=== PATIENT | male | born 1960 | race Caucasian/White ===

== ENCOUNTER → 2016-08-26 | Outpatient (CLI) | payer OTHER ==
[2016-08-26 08:40] LABS: MEAN CORPUSCULAR HEMOGLOBIN 30.5 pg (27.0-33.0); MEAN CORPUSCULAR HGB CONC 34.8 g/dl (32.0-36.5); MEAN CORPUSCULAR VOLUME 87.7 fl (80.0-96.0); RED CELL DISTRIBUTION WIDTH 12.3 % (11.5-14.5); WHITE BLOOD COUNT 5.4 K/mm3 (4.0-10.0)
[2016-08-26 09:02] LABS: ALBUMIN 3.5 GM/DL (3.2-5.2); ALBUMIN/GLOBULIN RATIO 1.17 (1.00-1.93); ALKALINE PHOSPHATASE 51 U/L (45-117); ALT/SGPT 23 U/L (12-78); ANION GAP 7 MEQ/L (8-16); AST/SGOT 15 U/L (15-37); BILIRUBIN,TOTAL 0.4 MG/DL (0.2-1.0); BLOOD UREA NITROGEN 25 MG/DL (7-18); CALCIUM LEVEL 8.6 MG/DL (8.5-10.1); CARBON DIOXIDE LEVEL 29 MEQ/L (21-32); CHLORIDE LEVEL 107 MEQ/L (98-107); CHOLESTEROL LEVEL 227 MG/DL (<200); CREATININE FOR GFR 1.02 MG/DL (0.70-1.30); GLOMERULAR FILTRATION RATE > 60.0 (>56); GLUCOSE, FASTING 97 MG/DL (70-105); POTASSIUM SERUM 3.8 MEQ/L (3.5-5.1); SODIUM LEVEL 143 MEQ/L (136-145); TOTAL PROTEIN 6.5 GM/DL (6.4-8.2); TRIGLYCERIDES LEVEL 70 MG/DL (<150)
== END ==
LOC: M LAB 08:19
PROVIDERS: ATTEND Family Medicine
DX: I10 Essential (primary) hypertension (principal)

== ENCOUNTER → 2017-02-22 | Outpatient (CLI) | payer OTHER ==
[2017-02-22 09:19] LABS: BASO % 0.7 % (0.0-1.0); EOS # 0.2 10^3/uL (0.0-0.50); EOS % 3.8 % (0.0-3.0); IMMATURE GRANULOCYTE % 0.3 % (0-0); LYMPH # 1.7 10^3/uL (1.5-4.5); LYMPH % 27.8 % (24.0-44.0); MEAN CORPUSCULAR VOLUME 88.2 fl (80.0-96.0); MONO # 0.6 10^3/uL (0.0-0.8); MONO % 9.5 % (0.0-5.0); NEUTROPHILS # 3.5 10^3/uL (1.8-7.7); NEUTROPHILS % 57.9 % (36.0-66.0); PLATELET COUNT, AUTOMATED 191 10^3/uL (150-450); RED CELL DISTRIBUTION WIDTH 11.9 % (11.5-14.5); WHITE BLOOD COUNT 6.1 10^3/uL (4.0-10.0)
[2017-02-22 09:41] LABS: ALBUMIN 3.8 GM/DL (3.2-5.2); ALBUMIN/GLOBULIN RATIO 1.27 (1.00-1.93); ALKALINE PHOSPHATASE 45 U/L (45-117); ALT/SGPT 24 U/L (12-78); ANION GAP 4 MEQ/L (8-16); AST/SGOT 15 U/L (7-37); BILIRUBIN,TOTAL 0.6 MG/DL (0.2-1.0); BLOOD UREA NITROGEN 24 MG/DL (7-18); CALCIUM LEVEL 8.9 MG/DL (8.5-10.1); CARBON DIOXIDE LEVEL 32 MEQ/L (21-32); CHLORIDE LEVEL 105 MEQ/L (98-107); CHOLESTEROL LEVEL 247 MG/DL (<200); CREATININE FOR GFR 1.02 MG/DL (0.70-1.30); GLOMERULAR FILTRATION RATE > 60.0 (>56); GLUCOSE, FASTING 92 MG/DL (70-105); POTASSIUM SERUM 4.1 MEQ/L (3.5-5.1); SODIUM LEVEL 141 MEQ/L (136-145); TOTAL PROTEIN 6.8 GM/DL (6.4-8.2); TRIGLYCERIDES LEVEL 90 MG/DL (<150)
== END ==
LOC: M LAB 08:40
PROVIDERS: ATTEND Family Medicine
DX: I10 Essential (primary) hypertension (principal)

== ENCOUNTER → 2018-03-03 | Outpatient (CLI) | payer OTHER ==
[2018-03-03 07:05] LABS: BASO # 0.1 10^3/uL (0.0-0.2); EOS # 0.4 10^3/uL (0.0-0.50); HEMATOCRIT 46.6 % (42.0-52.0); HEMOGLOBIN 15.3 g/dl (13.5-17.5); IMMATURE GRANULOCYTE % 0.5 % (0-3.0); LYMPH # 1.7 10^3/uL (1.5-4.5); MEAN CORPUSCULAR HEMOGLOBIN 29.4 pg (27.0-33.0); MEAN CORPUSCULAR HGB CONC 32.8 g/dl (32.0-36.5); MEAN CORPUSCULAR VOLUME 89.4 fl (80.0-96.0); MONO # 0.6 10^3/uL (0.0-0.8); MONO % 9.4 % (0.0-5.0); NEUTROPHILS # 3.5 10^3/uL (1.8-7.7); NEUTROPHILS % 56.1 % (36.0-66.0); PLATELET COUNT, AUTOMATED 202 10^3/uL (150-450); RED BLOOD COUNT 5.21 10^6/uL (4.30-6.10); WHITE BLOOD COUNT 6.2 10^3/uL (4.0-10.0)
[2018-03-03 07:25] LABS: ALBUMIN 3.6 GM/DL (3.2-5.2); ALBUMIN/GLOBULIN RATIO 1.29 (1.00-1.93); ALKALINE PHOSPHATASE 48 U/L (45-117); ALT/SGPT 28 U/L (12-78); ANION GAP 8 MEQ/L (8-16); AST/SGOT 17 U/L (7-37); BILIRUBIN,TOTAL 0.5 MG/DL (0.2-1.0); BLOOD UREA NITROGEN 22 MG/DL (7-18); CARBON DIOXIDE LEVEL 29 MEQ/L (21-32); CHLORIDE LEVEL 105 MEQ/L (98-107); CHOLESTEROL LEVEL 227 MG/DL (<200); CHOLESTEROL RISK RATIO 4.729 (<5); CREATININE FOR GFR 1.05 MG/DL (0.70-1.30); GLOMERULAR FILTRATION RATE > 60.0 (>56); GLUCOSE, FASTING 98 MG/DL (70-100); HDL CHOLESTEROL 48 MG/DL (>40); LDL CHOLESTEROL 158 MG/DL (<100); NON-HDL-C 179 MG/DL; POTASSIUM SERUM 3.8 MEQ/L (3.5-5.1); SODIUM LEVEL 142 MEQ/L (136-145); TOTAL PROTEIN 6.4 GM/DL (6.4-8.2); TRIGLYCERIDES LEVEL 103 MG/DL (<150)
== END ==
LOC: M LAB 06:01
DX: I10 Essential (primary) hypertension (principal)
CPT/HCPCS: 80053

== ENCOUNTER → 2018-08-31 | Outpatient (CLI) | payer OTHER ==
[2018-08-31 08:34] LABS: BASO # 0.1 10^3/uL (0.0-0.2); BASO % 1.3 % (0.0-1.0); EOS # 0.8 10^3/uL (0.0-0.50); EOS % 11.1 % (0.0-3.0); HEMATOCRIT 46.2 % (42.0-52.0); HEMOGLOBIN 15.4 g/dl (13.5-17.5); LYMPH # 1.7 10^3/uL (1.5-4.5); LYMPH % 24.3 % (24.0-44.0); MEAN CORPUSCULAR HEMOGLOBIN 29.7 pg (27.0-33.0); MEAN CORPUSCULAR HGB CONC 33.3 g/dl (32.0-36.5); MONO # 0.7 10^3/uL (0.0-0.8); MONO % 9.9 % (0.0-5.0); NEUTROPHILS # 3.8 10^3/uL (1.8-7.7); NEUTROPHILS % 53.3 % (36.0-66.0); PLATELET COUNT, AUTOMATED 198 10^3/uL (150-450); RED BLOOD COUNT 5.19 10^6/uL (4.30-6.10)
[2018-08-31 08:44] LABS: ALBUMIN 3.8 GM/DL (3.2-5.2); ALT/SGPT 30 U/L (12-78); BILIRUBIN,TOTAL 0.8 MG/DL (0.2-1.0); BLOOD UREA NITROGEN 25 MG/DL (7-18); CARBON DIOXIDE LEVEL 29 MEQ/L (21-32); CHLORIDE LEVEL 106 MEQ/L (98-107); CHOLESTEROL LEVEL 168 MG/DL (<200); CHOLESTEROL RISK RATIO 3.111 (<5); CREATININE FOR GFR 1.02 MG/DL (0.70-1.30); GLOMERULAR FILTRATION RATE > 60.0 (>56); GLUCOSE, FASTING 100 MG/DL (70-100); HDL CHOLESTEROL 54 MG/DL (>40); LDL CHOLESTEROL 101 MG/DL (<100); NON-HDL-C 114 MG/DL; SODIUM LEVEL 143 MEQ/L (136-145); TOTAL PROTEIN 6.8 GM/DL (6.4-8.2); TRIGLYCERIDES LEVEL 64 MG/DL (<150)
== END ==
LOC: M LAB 08:03
PROVIDERS: ATTEND Family Medicine
DX: I10 Essential (primary) hypertension (principal)

== ENCOUNTER → 2019-02-14 | Outpatient (CLI) | payer OTHER ==
[2019-02-16 10:52] LABS: RUBELLA IgG QUALITATIVE IMMUNE (IMMUNE)
[2019-02-16 14:34] LABS: MUMPS VIRUS IgG ANTIBODY 22.4 AU/mL (Immune >10.9); RUBEOLA IgG ANTIBODY >300.0 AU/mL (Immune >16.4)
== END ==
LOC: M LAB 08:16
PROVIDERS: ATTEND Family Medicine
DX: Z01.84 Encounter for antibody response examination (principal)

== ENCOUNTER → 2019-05-12 | Outpatient (CLI) | payer OTHER ==
[~2019-05-12] MED LIST: ATOR40TA75 PO; CIDA500T2 PO; HM V4000 PO; LISI20TA20 PO; MIRA3350 PO; TUMS750C5 PO; XARE10TA PO
[2019-05-12 16:41] LABS: HEMATOCRIT 47.7 % (42.0-52.0); HEMOGLOBIN 15.4 g/dl (13.5-17.5); MEAN CORPUSCULAR HEMOGLOBIN 29.2 pg (27.0-33.0); MEAN CORPUSCULAR HGB CONC 32.3 g/dl (32.0-36.5); MEAN CORPUSCULAR VOLUME 90.3 fl (80.0-96.0); PLATELET COUNT, AUTOMATED 173 10^3/uL (150-450); RED BLOOD COUNT 5.28 10^6/uL (4.30-6.10); WHITE BLOOD COUNT 7.9 10^3/uL (4.0-10.0)
--- NOTE | 2019-05-12 16:42 | ECGEPIP ---
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
[2019-05-12 16:46] LABS: INR 1.1; PROTHROMBIN TIME 13.9 SECONDS (11.8-14.0)
[2019-05-12 17:02] LABS: ALT/SGPT 44 U/L (12-78); BILIRUBIN,TOTAL 0.6 MG/DL (0.2-1.0); BLOOD UREA NITROGEN 27 MG/DL (7-18); CALCIUM LEVEL 9.2 MG/DL (8.5-10.1); CARBON DIOXIDE LEVEL 29 MEQ/L (21-32); CHLORIDE LEVEL 107 MEQ/L (98-107); CREATININE FOR GFR 1.03 MG/DL (0.70-1.30); GLOMERULAR FILTRATION RATE > 60.0 (>56); GLUCOSE, FASTING 91 MG/DL (70-100); POTASSIUM SERUM 4.2 MEQ/L (3.5-5.1); SODIUM LEVEL 142 MEQ/L (136-145); TOTAL PROTEIN 6.9 GM/DL (6.4-8.2)
[2019-05-12 17:48] LABS: ERYTHROCYTE SEDIMENTATION RATE 18 mm/hr (0-20)
== END ==
LOC: M RAD 15:09
PROVIDERS: ATTEND Orthopaedic Surgery
DX: M25.562 Pain in left knee (principal)

== ENCOUNTER → 2019-05-12 | Outpatient (CLI) | payer OTHER ==
[2019-05-12 16:43] LABS: HEMATOCRIT 46.9 % (42.0-52.0); HEMOGLOBIN 15.4 g/dl (13.5-17.5); MEAN CORPUSCULAR HEMOGLOBIN 29.4 pg (27.0-33.0); MEAN CORPUSCULAR HGB CONC 32.8 g/dl (32.0-36.5); MEAN CORPUSCULAR VOLUME 89.7 fl (80.0-96.0); PLATELET COUNT, AUTOMATED 183 10^3/uL (150-450); RED BLOOD COUNT 5.23 10^6/uL (4.30-6.10)
[2019-05-12 17:01] LABS: ALT/SGPT 42 U/L (12-78); BILIRUBIN,TOTAL 0.6 MG/DL (0.2-1.0); BLOOD UREA NITROGEN 27 MG/DL (7-18); CALCIUM LEVEL 9.2 MG/DL (8.5-10.1); CARBON DIOXIDE LEVEL 28 MEQ/L (21-32); CHLORIDE LEVEL 107 MEQ/L (98-107); CREATININE FOR GFR 1.01 MG/DL (0.70-1.30); GLOMERULAR FILTRATION RATE > 60.0 (>56); GLUCOSE, FASTING 89 MG/DL (70-100); POTASSIUM SERUM 4.1 MEQ/L (3.5-5.1); SODIUM LEVEL 142 MEQ/L (136-145); TOTAL PROTEIN 6.8 GM/DL (6.4-8.2)
--- NOTE | 2019-05-13 07:29 | REP ---
Clinical: Preoperative assessment . Comparison: 04/30/2008 Technique: PA and lateral. Findings: The mediastinum and cardiac silhouette are normal. The lung snyder are clear and without acute consolidation, effusion, or pneumothorax. The skeletal structures are intact and normal. Impression: 1. No acute cardiopulmonary process. Electronically Signed by Wilfred Spain MD 05/12/2019 04:12 P
== END ==
LOC: M LAB 15:16
PROVIDERS: ATTEND Family Medicine
DX: Z01.818 Encounter for other preprocedural examination (principal)

== ENCOUNTER 2019-05-25 16:19 | Outpatient (RCR) | payer OTHER ==
[2019-05-28] MEDS ORDERED: XARE10TA PO (06:29)
[2019-05-28] MEDS ORDERED: PERC5TAB12 PO (06:29)
== END 2019-05-30 ==
LOC: M PT 16:19
PROVIDERS: ATTEND Orthopaedic Surgery
DX: M17.12 Unilateral primary osteoarthritis, left knee (principal)

== ENCOUNTER 2019-05-27 09:19 | Inpatient (IN) | payer OTHER ==
--- NOTE | 2019-05-22 15:12 | HPE ---
DATE OF PLANNED ADMISSION: 05/27/2019 HISTORY OF PRESENT ILLNESS This is a pleasant 58-year-old male with continuing symptomatic left knee osteoarthritis. He has consented for a left total knee arthroplasty per Dr. Alberto Kohler. Medical optimization per Dr. Moore. X-rays are consistent with advanced osteoarthritis. ALLERGIES: None known to drugs. CURRENT MEDICATIONS - Lisinopril - hydrochlorothiazide 20-25 mg - Glucosamine chondroitin - Motrin 200 mg. - Tums 500 mg - Xarelto 10 mg - Atorvastatin calcium 40 mg - MiraLAX 3350 NF. PAST MEDICAL HISTORY: Bilateral knee osteoarthritis. Essential hypertension. Chronic deep vein thrombosis femoral nerve left lower extremity which has been managed with Xarelto. Coagulation factor deficiency syndrome. Hypercoagulability state. Peripheral venous insufficiency. Thrombophilia due to acquired protein C deficiency. Varicose veins lower extremity. Hypercholesteremia. CURRENT PROBLEMS: Symptomatic osteoarthritis. Hypertension. Hypercholesteremia. PAST SURGICAL HISTORY Knee and shoulder arthroscopy. FAMILY HISTORY: Hypertension, heart disease, hypercholesteremia and arthritis. SOCIAL HISTORY Denies smoking, rarely intakes ethanol. Denies illicit drugs. REVIEW OF SYSTEMS Denies chest pain, shortness breath, dyspnea on exertion, fever, chills, malaise, upper respiratory, urinary tract symptoms. LABORATORY DATA Chest x-ray [facility] service date 05/12 : No acute cardiopulmonary process per [facility]. EKG: Sinus rhythm left axis deviation. Mild intraventricular conduction delay as read by Dr. Arizmendi. LABORATORY DATA BUN 27, anion gap 6, otherwise unremarkable. PHYSICAL EXAMINATION Vitals: BP 122/70. Pulse 78, temperature 96.9. Height 72. Weight 248 pounds. BMI 33.6. Respiratory 13. This is a pleasant well-developed, well-nourished white male in no acute distress. Alert and oriented times three. Mood and affect are appropriate. He ambulating slow steady without overt antalgia, assistance or favoring. He has left knee medial joint line tenderness to palpation, crepitance about the knee through flexion and extension. Bowels soft, nontender, sounds times four. Chest: Regular rate and rhythm, rises symmetrically. Lungs: Clear to auscultation. Neck: Supple. Negative JVD or bruits. Normocephalic. IMPRESSION 1. Left knee symptomatic osteoarthritis. 2. Patient consented for a left total knee arthroplasty per Dr. Alberto Kohler. 3. Medical optimization per Dr. Moore, which I am awaiting his clearance note. 4. Sequential compression devices (SCDs) and TEDs in OR. 5. 2 grams IV Kefzol in OR. MTDD
[~2019-05-27] VITALS: Ht 180.3 cm; Wt 110.6 kg
[2019-05-27] VITALS (7 sets, daily range): BP systolic 120–136; BP diastolic 77–82
[~2019-05-27 09:19] MED LIST changes: +BUPIVACAINE LIPOSOME/PF 1.3% 20ML VIAL (13.3MG/ML)(EXPAREL)(C9290 PER1MG) As Ordered ONE; +EPINEPHrine INJ 1 MG/ML 1ML VIAL As Ordered ONE; +LR 1,000 ML IV ONE; +TRANEXAMIC ACID 100 MG/ML 10ML VIAL As Ordered ONE; +ceFAZolin 1GM INJ (J0690 PER 500MG) As Ordered ONE; +ceFAZolin SOD 2 GM in IV 1 EA IV ONE
--- NOTE | 2019-05-27 10:46 | IPN ---
DATE: 05/27/2019 Patient seen and examined. He wishes to go ahead with a left knee arthroplasty. He understands the nature and risks associated with this. The risks include bleeding, infection, damage to nerves, vessels, persistent pain, wear loosening, blood clots, medical problems, , among others. He wishes to proceed.
[2019-05-27] MEDS ORDERED: fentaNYL 100 MCG/2 ML INJECTION (J3010) As Ordered ONE ×2 (11:19→12:57)
[2019-05-27] MEDS ORDERED: MIDAZOLAM INJ 2 MG/2 ML VIAL (J2250) As Ordered ONE ×2 (11:19→12:57)
[2019-05-27] MEDS ORDERED: fentaNYL 100 MCG/2 ML INJECTION (J3010) IV PRN ×2 (12:00→14:30)
[2019-05-27] MEDS ORDERED: MIDAZOLAM INJ 2 MG/2 ML VIAL (J2250) IV PRN (12:00)
[2019-05-27] MEDS ORDERED: PHENYLephrine HCL 500 MCG/5 ML (100MCG/ML) SYRINGE (J2370) As Ordered ONE (12:57)
[2019-05-27] MEDS ORDERED: ONDANSETRON 4MG/2ML VIAL (J2405) As Ordered ONE (12:57)
[2019-05-27] MEDS ORDERED: propofoL 500 MG/50 ML VIAL As Ordered ONE (12:57)
[2019-05-27] MEDS ORDERED: LIDOCAINE 2% INJ 100 MG/5 ML SDV (FOR ANES.) As Ordered ONE (12:57)
[2019-05-27] MEDS ORDERED: propofoL 200 MG/20 ML VIAL As Ordered ONE ×2 (12:58→13:42)
[2019-05-27] MEDS ORDERED: ROPIvacaine 0.5% 30 ML INJECTION (J2795 PER 1MG) ONE (13:29)
[2019-05-27] MEDS ORDERED: LIDOCAINE 1% MDV 20ML VIAL ONE (13:29)
[2019-05-27] MEDS ORDERED: EPINEPHrine INJ 1 MG/ML 1ML VIAL ONE (13:29)
[2019-05-27] MEDS ORDERED: METOCLOPRAMIDE INJ 10MG/2ML VIAL (J2765) IV PRN (14:30)
[2019-05-27] MEDS ORDERED: oxyCODONE 5MG TAB PO PRN (14:30)
[2019-05-27] MEDS ORDERED: LR 1,000 ML IV SCH ×2 (14:30)
[2019-05-27] MEDS ORDERED: MORPHINE 4 MG/ML 1ML VIAL/SYRINGE (J2270) IV PRN (14:30)
[2019-05-27] MEDS ORDERED: PERCOCET 5MG/325MG TAB PO PRN ×2 (14:30)
[2019-05-27] MEDS ORDERED: ONDANSETRON 4MG/2ML VIAL (J2405) IV PRN ×2 (14:30)
[2019-05-27] MEDS ORDERED: MORPHINE 2 MG/ML 1ML VIAL (J2270) IV PRN (14:30)
[2019-05-27] MEDS ORDERED: ACETAMINOPHEN TAB 650MG DOSE (2X325MG) PO PRN (15:00)
--- NOTE | 2019-05-27 15:00 | REP ---
Left knee: Two views. History: Postop placement. Findings: Portably obtained AP and lateral views of the left knee demonstrate that the patient is status post left knee arthroplasty. Anterior skin cait are seen. Periarticular soft tissue emphysema and some swelling seen. Prosthetic left knee joint components are well aligned. Electronically Signed by Amador Riojas MD 05/27/2019 02:51 P
--- NOTE | 2019-05-27 16:12 | CR.PDOC ---
General Date of Consultation: May 27, 2019 Referring Provider: JENNY GUERRIER DO Consultation REASON FOR CONSULTATION Medical management postoperatively for left knee replacement. HISTORY OF PRESENT ILLNESS: This is an 58 year old male with past medical history of, htn, non provoked DVT on 10 mg xeralto for the last 3 years, who presented for elective Left Knee Replacement. We have been consulted for medical management of patient. He is feeling good. Patient denies chest pain, shortness of breath, vomiting, fever, chills and headache. PAST MEDICAL HISTORY: 1. Hypertension. 2. Hyperlipidemia. 3. DVT PAST SURGICAL HISTORY: Non contributory . FAMILY HISTORY: Noncontributory SOCIAL HISTORY: Patient is is non-smoker. No Alcohol or recreational drug use. REVIEW OF SYSTEMS: Negative except mentioned in HPI PHYSICAL EXAMINATION: GENERAL APPEARANCE: Pleasant 58 year old male lying in bed , in no acute distress. HEENT: Atraumatic, normocephalic, moist mucus membranes RESPIRATORY: Clear to auscultation bilaterally with no wheezes, rhonchi or rales. CARDIOVASCULAR: Normal S1, S2 regular rate and rhythm with no murmurs, gallops or rubs. ABDOMEN: Bowel sounds present, abdomen soft and nontender. EXTREMITIES: Surgical bandage / JON wrap around knee, no signs of erythema or discharge. NEUROLOGICAL: AOx3 no gross focal deficits LABORATORY DATA: Please see below. ASSESSMENT/PLAN: This is an 58 year old male with past medical history of, HTN on lisinopril, non provoked DVT on 10 mg xeralto for the last 3 years, who presented for elective Left Knee Replacement 1.Left Knee Replacement . diet, activity, anticoagulation and pain control per orthopedics PT/OT and early OOB 2. Hypertension : continue home medication with lisinopril 3. Hyperlipidemia: continue home medication with statin 4. H/O non provoked DVT: Cont xeralto home dose . Discussed with the pt to talk to his PCP about the dose of xeralto as he is on low dose instead of full dose as he had a non provoked DVT. Disposition as per primary. Vital Signs/I&O Vital Signs Date Time Temp Pulse Resp B/P (MAP) Pulse Ox O2 Delivery O2 Flow Rate FiO2 05/27/19 15:00 97 56 14 122/85 (97) 97 Room Air 05/27/19 12:12 3 Allergies Coded Allergies: No Known Allergies (Verified , 05/13/19) Home Medications Scheduled Atorvastatin Calcium (Atorvastatin Calcium) 40 Mg Tablet, 40 MG PO QHS, (Reported) Cholecalciferol (Vitamin D3) (Vitamin D3) 4,000 Unit Capsule, 4,000 UNIT PO DAILY, (Reported) Glucosamine/Chondr Marion A Sod (Cidaflex Tablet) 1 Each Tablet, 1 TAB PO BID, (Reported) Lisinopril/Hydrochlorothiazide (Lisinopril-Hctz 20-25 mg Tab) 1 Each Tablet, 1 TAB PO DAILY, (Reported) Rivaroxaban (Xarelto) 10 Mg Tablet, 10 MG PO DAILY, (Reported) Scheduled PRN Calcium Carbonate (Tums) 300 Mg Tab.chew, 750 MG PO PRN PRN for HEARTBURN, (Reported) Polyethylene Glycol 3350 (Miralax) 119 Gm Powder, 17 GM PO DAILYPRN PRN for CONSTIPATION, #1 (Reported) dilute in 8 ounces of water or juice NO FRAZIER MD May 27, 2019 16:12
[2019-05-27] MEDS: ceFAZolin SOD 2 GM in IV 1 EA IV SCH (22:01)
[2019-05-28] MEDS: ceFAZolin SOD 2 GM in IV 1 EA IV SCH ×2 (04:56→13:43)
[2019-05-28 06:00] VITALS: BP 103/72
[2019-05-28] MEDS ORDERED: PERC5TAB12 PO (06:29)
[2019-05-28] MEDS ORDERED: XARE10TA PO (06:29)
[2019-05-28] MEDS ORDERED: PERCOCET 5MG/325MG TAB PO PRN (06:30)
[2019-05-28] MEDS: PERCOCET 5MG/325MG TAB PO PRN ×3 (08:37→20:32)
[2019-05-28] MEDS: MOM 30ML SUSPENSION UDC PO SCH (08:37)
[2019-05-28] MEDS: MIRALAX *UNIT DOSE* 17GM PACKET PO SCH (08:37)
--- NOTE | 2019-05-28 10:28 | RO ---
DATE OF PROCEDURE: 05/27/2019 PREOPERATIVE DIAGNOSIS: Left knee osteoarthritis. POSTOPERATIVE DIAGNOSIS: Left knee osteoarthritis. PROCEDURE: Left total knee arthroplasty using Attune rotating platform posterior stabilized size 6 femur, size 7 tibial tray, 10 polyethylene, 38 patellar button. SURGEON: Dr. Alberto Kohler HEATING REPAIR TECHNICIAN: RADHA Iyer ANESTHESIA: Spinal ESTIMATED BLOOD LOSS: 50. COMPLICATIONS: None. INDICATIONS: This is a 58-year-old gentleman with severe knee arthritis. He wished to go ahead with an arthroplasty. DESCRIPTION OF PROCEDURE: The patient was taken to the operating room and placed in supine position after spinal anesthesia was induced. The left lower extremity was prepped and draped in the usual sterile fashion. A time out was performed and a tourniquet was inflated. I then created a longitudinal incision over the anterior aspect of the knee. I did a medial parapatellar arthrotomy per routine. I flexed the knee up and remove osteophytes. Used the canal initiating reamer on the femoral side, followed by the intramedullary guide set at 5 degrees of valgus and a 9 mm cut. I dialed this back 2 extra mm due a flexion contracture. Pinned it in place and the distal femoral cut was made. I then removed this bone, sized the femur to be a 6 and made the remaining cuts, having placed the drill holes in the end of the femur with external rotation dialed in and the cutting block secured. The soft tissue was protected. I then directed our attention to the tibial side. The tibial alignment guide was placed. The appropriate amount of valgus and posterior slope was dialed in. The proximal tibia cut was made removing 4 mm from the low side. The hot mill tin roller was then used to remove soft tissue and osteophytes from either side of the knee. The box cut was then made on the femoral side using the box cutting guide. I I then used the spacer blocks and determined that probably a size 10 would be the most appropriate polyethylene based on these trial spacers. The overall soft tissue balance was excellent. I had done a medial release and I extended it slightly at this point. I then prepared the tibial surface, a size 7 tray fit nicely. This was drilled, broached and the trial components were placed, which fit very nicely, very secure, and the cuts were excellent. A size 10 polyethylene was inserted as a trial and this provided excellent range of motion and stability in flexion and extension. I then freehand cut the patella, removing about 8 mm of bone. It was relatively thick. I sized it to be a 38. Drill holes were placed in the end of the femur as well. The patella tracked very nicely. I then removed the trial components and the financial sales assistant prepared the bone cement in the modern technique. I irrigated and dried the bony surface, placed the Exparel in the deep tissues and then cemented in the components, removing excess bone cement. The polyethylene was inserted. I then cemented on the patella and held it in place with a clamp, removed excess bone cement, irrigated copiously, and placed the TXA deep in the wound. The Exparel had already been placed in the deep tissues. I then irrigated and closed the deep layer with #1 Vicryl suture and running Stratafix suture, obtaining a watertight closure. Ia gain irrigated and closed the subcutaneous with #2-0 Vicryl and the skin with cait. A sterile dressing was applied. The tourniquet was deflated once the cement was hardened and he was taken to recovery room in stable condition. There were no known complications. The plan will be routine postop. The financial sales assistant was instrumental in holding retractors, assisting in mixing the bone cement and assisting in wound closure. CALLIE
--- NOTE | 2019-05-28 12:22 | IPNPDOC ---
Text Note Date of Service The patient was seen on 05/28/19. NOTE Pt was seen and examined . No overnight events. Slept well. PHYSICAL EXAMINATION: GENERAL APPEARANCE: Pleasant 58 year old male lying in bed , in no acute distress. HEENT: Atraumatic, normocephalic, moist mucus membranes RESPIRATORY: Clear to auscultation bilaterally with no wheezes, rhonchi or rales. CARDIOVASCULAR: Normal S1, S2 regular rate and rhythm with no murmurs, gallops or rubs. ABDOMEN: Bowel sounds present, abdomen soft and nontender. EXTREMITIES: Surgical bandage / JON wrap around knee, no signs of erythema or discharge. NEUROLOGICAL: AOx3 no gross focal deficits LABORATORY DATA: Please see below. ASSESSMENT/PLAN: This is an 58 year old male with past medical history of, HTN on lisinopril, non provoked DVT on 10 mg xeralto for the last 3 years, who presented for elective Left Knee Replacement 1.Left Knee Replacement . diet, activity, anticoagulation and pain control per orthopedics PT/OT and early OOB . He had some bloof drop oozing out of the dressing and on my exam the dressing looks clear as it was changed. His Hb is stable and his vitals including HR and BP are normal. If no issue with wound pt is optimized for DC 2. Hypertension : continue home medication with lisinopril 3. Hyperlipidemia: continue home medication with statin 4. H/O non provoked DVT: Cont xeralto home dose . Discussed with the pt to talk to his PCP about the dose of xeralto as he is on low dose instead of full dose as he had a non provoked DVT. Disposition as per primary. Hospitalist team will sign off and please reconsult PRN. Pt is cleared for DC from IM stand point. VS,Fishbone, I+O VS, Fishbone, I+O Vital Signs Date Time Temp Pulse Resp B/P (MAP) Pulse Ox O2 Delivery O2 Flow Rate FiO2 05/28/19 09:07 18 Room Air 05/28/19 06:00 98.5 94 103/72 (82) 96 05/27/19 12:12 3 I&O- Last 24 Hours up to 6 AM 05/28/19 06:00 Intake Total 4915 ml Output Total 1050 ml Balance 3865 ml NO FRAZIER MD May 28, 2019 12:22
[2019-05-28 14:00] VITALS: BP 154/97
[2019-05-28] MEDS ORDERED: RIVAROXABAN 10 MG TAB (XARELTO) PO SCH (18:00)
[2019-05-28 22:00] VITALS: BP 131/71
[2019-05-29 06:00] VITALS: BP_SYST 130; BP_SYST 146; BP_DIAS 59; BP_DIAS 74
[2019-05-29] MEDS: MIRALAX *UNIT DOSE* 17GM PACKET PO SCH (08:02)
[2019-05-29] MEDS: MOM 30ML SUSPENSION UDC PO SCH (08:02)
[2019-05-29] MEDS ORDERED: MAGNESIUM CITRATE 300 ML BTL PO ONE (09:00)
[2019-05-29 14:00] VITALS: BP 137/88
--- NOTE | 2019-06-02 10:15 | DSES ---
DATE OF ADMISSION: 05/27/2019 DATE OF DISCHARGE: 05/29/2019 ATTENDING PHYSICIAN: Dr. Alberto Kohler. ADMISSION DIAGNOSIS: Left knee osteoarthritis. OTHER DIAGNOSES: 1. Essential hypertension. 2. Chronic deep vein thrombosis (DVT), managed with Xarelto. 3. Hypercoagulable state. 4. Peripheral venous insufficiency. 5. Thrombophilia due to protein C deficiency. 6. Varicose veins. 7. Hyperlipidemia. DISCHARGE DIAGNOSIS: Left knee osteoarthritis status post left knee total arthroplasty. PROCEDURE PERFORMED: Left knee total arthroplasty. HOSPITAL COURSE: This is a pleasant 58-year-old male patient with progressively worsening left knee pain and stiffness who was consented for left total knee arthroplasty with Dr. Alberto Kohler. He was admitted on the day of surgery and the procedure went well. Hospital course was without complications. He was up ambulating as tolerated with physical therapy per their protocol on the left lower extremity. Pain was controlled on the day of discharge. He will resume preoperative medications and diet along with oral pain medication for pain control. He will continue Xarelto at home on his normal dose as well as utilize thromboembolic deterrent (EVER) stockings for DVT prophylaxis. Postoperative instructions to include, but not limited to wound monitoring and activity limitations were discussed. The patient will follow up in our office in 7-10 days for surgical followup. Please refer to the medical record for further details.
== END 2019-05-29 16:55 | disposition home or self-care (01) | DRG 470 ==
LOC: M OR 09:19 → M MS5PR 15:15
PROVIDERS: ADMIT Orthopaedic Surgery; ATTEND Orthopaedic Surgery
PROC: 0SRD0J9 Replacement of Left Knee Joint with Synthetic Substitute, Cemented, Open Approach (ICD-10-PCS; principal; 2019-05-27 12:45)
DX: M17.12 Unilateral primary osteoarthritis, left knee (principal); I82.512 Chronic embolism and thrombosis of left femoral vein; D68.59 Other primary thrombophilia; I10 Essential (primary) hypertension; I83.93 Asymptomatic varicose veins of bilateral lower extremities; E78.00 Pure hypercholesterolemia, unspecified; I73.9 Peripheral vascular disease, unspecified; Z79.01 Long term (current) use of anticoagulants; Z79.899 Other long term (current) drug therapy; D64.89 Other specified anemias

== ENCOUNTER 2019-06-25 15:09 | Outpatient (RCR) | payer OTHER ==
[~2019-06-25 15:09] MED LIST changes: -BUPIVACAINE LIPOSOME/PF 1.3% 20ML VIAL (13.3MG/ML)(EXPAREL)(C9290 PER1MG) As Ordered ONE; -EPINEPHrine INJ 1 MG/ML 1ML VIAL As Ordered ONE; -LR 1,000 ML IV ONE; +PERC5TAB12 PO; -TRANEXAMIC ACID 100 MG/ML 10ML VIAL As Ordered ONE; -ceFAZolin 1GM INJ (J0690 PER 500MG) As Ordered ONE; -ceFAZolin SOD 2 GM in IV 1 EA IV ONE
== END 2019-06-30 ==
LOC: M PT 15:09
PROVIDERS: ATTEND Orthopaedic Surgery
DX: Z96.651 Presence of right artificial knee joint (principal)

== ENCOUNTER → 2020-02-12 | Outpatient (CLI) | payer OTHER ==
[2020-02-12 07:09] LABS: HEMATOCRIT 48.4 % (42.0-52.0); HEMOGLOBIN 15.5 g/dl (13.5-17.5); MEAN CORPUSCULAR HEMOGLOBIN 28.5 pg (27.0-33.0); PLATELET COUNT, AUTOMATED 192 10^3/uL (150-450); RED BLOOD COUNT 5.44 10^6/uL (4.30-6.10); WHITE BLOOD COUNT 5.1 10^3/uL (4.0-10.0)
[2020-02-12 07:18] LABS: INR 1.08; PROTHROMBIN TIME 14.2 SECONDS (12.5-14.3)
[2020-02-12 07:34] LABS: ALBUMIN 3.9 GM/DL (3.2-5.2); ALT/SGPT 40 U/L (12-78); BILIRUBIN,TOTAL 0.8 MG/DL (0.2-1.0); BLOOD UREA NITROGEN 27 MG/DL (7-18); CALCIUM LEVEL 9.2 MG/DL (8.8-10.2); CARBON DIOXIDE LEVEL 28 MEQ/L (21-32); CHLORIDE LEVEL 104 MEQ/L (98-107); GLOMERULAR FILTRATION RATE > 60.0 (>49); GLUCOSE, FASTING 102 MG/DL (70-100); POTASSIUM SERUM 4.1 MEQ/L (3.5-5.1); SODIUM LEVEL 139 MEQ/L (136-145); TOTAL PROTEIN 7.3 GM/DL (6.4-8.2)
--- NOTE | 2020-02-12 08:38 | REP ---
INDICATION: RT KNEE ARTHRITIS LAB/EKG 1ST XR NEXT. COMPARISON: Comparison study May 12, 2019. TECHNIQUE: Two views.. FINDINGS: The lungs are well inflated and free of infiltrate. The pleural angles are sharp. The heart size is normal. Pulmonary vasculature is not increased. No significant bony abnormality is seen. The thoracic aorta is somewhat tortuous. There are degenerative changes in the thoracic spine. IMPRESSION: No active cardiopulmonary disease.. <Electronically signed by Justin Riojas > 02/12/20 [id number]
--- NOTE | 2020-02-12 15:31 | ECGEPIP ---
[facility] Test Date: 2020-02-12 Pat Name: ANDRIA FREDERICK Department: Room: - Gender: Male Pay Per Click Strategist: : 1960 Requested By: Alberto Kohler Order Number: [id number] Reading MD: Rodríguez Baumann Measurements Intervals [place] Rate: 76 P: 58 [place]: 172 QRS: 4 QRSD: 111 T: 34 QT: 368 QTc: 415 Interpretive Statements Normal sinus rhythm Minor intraventricular conduction delay No significant change since prior tracing of 05/12/2019 Electronically Signed on 02-12-2020 15:31:42 EST by Rodríguez Baumann
== END ==
LOC: M LAB 06:09
PROVIDERS: ATTEND Orthopaedic Surgery
DX: Z01.818 Encounter for other preprocedural examination (principal); M17.11 Unilateral primary osteoarthritis, right knee

== ENCOUNTER → 2020-02-12 | Outpatient (CLI) | payer OTHER ==
[2020-02-12 07:33] LABS: CHOLESTEROL RISK RATIO 3.411 (<5)
== END ==
LOC: M LAB 06:07
PROVIDERS: ATTEND Family Medicine
DX: I10 Essential (primary) hypertension (principal)

== ENCOUNTER → 2020-02-18 | Outpatient (CLI) | payer OTHER | LOC: M LABSMTC 10:13 | PROVIDERS: ATTEND Anesthesiology | DX: Z01.812 Encounter for preprocedural laboratory examination (principal); Z20.828 Contact with and (suspected) exposure to other viral communicable diseases ==

== ENCOUNTER 2020-02-23 07:48 | Inpatient (IN) | payer OTHER ==
--- NOTE | 2020-02-19 11:18 | HPE ---
DATE OF ANTICIPATED ADMISSION: 02/23/2020 ATTENDING PHYSICIAN: Dr. Alberto Kohler. CHIEF COMPLAINT: Right knee pain and stiffness. HISTORY OF PRESENT ILLNESS: The patient is a 59-year-old male with progressively worsening right knee pain and stiffness. He failed to improve with conservative measures. He continues to have symptoms with weightbearing activities and activities of daily living. He has consented for an elective right total knee arthroplasty with Dr. Kohler for his continued symptoms. Medical optimization pending with Dr. Palafox. CURENT MEDICATIONS: 1. Xarelto 10 mg daily. 2. Lisinopril/Hydrochlorothiazide 20/25 mg daily. 3. Atorvastatin 40 mg daily. 4. Glucosamine one tablet daily. 5. MiraLax powder 17 grams daily. ALLERGIES: No known drug allergies. CHRONIC MEDICAL CONDITIONS: Factor V Leiden mutation, DVTs in the bilateral lower extremities, hypertension, hyperlipidemia. PREVIOUS SURGERY: Include salivary gland stone removal, left shoulder rotator cuff surgery, loose body removal arthroscopically in the bilateral knees, left total knee arthroplasty. SOCIAL HISTORY: Patient has never used tobacco and uses alcohol infrequently. REVIEW OF SYSTEMS: Patient denies fevers, chills, nausea, vomiting or diarrhea. He denies chest pain, shortness of breath, lightheadedness, dizziness or headaches. He denies any recent upper respiratory or urinary tract infection symptoms. He does continue to have right knee pain with weightbearing activities and activities of daily living. PHYSICAL EXAMINATION: GENERAL: Well-nourished, well-developed male in no apparent distress. He is alert, oriented and cooperative. Mood and affect are appropriate. VITAL SIGNS: Height 71 inches, weight 258 pounds. Temperature 97.1, blood pressure 120/76, heart rate 81, respirations 16. NECK: Supple without lymphadenopathy. HEART: Regular rate and rhythm. LUNGS: Clear to auscultation bilaterally. Breathing is regular and non-labored. ABDOMEN: Soft and nontender. Bowel sounds are present. MUSCULOSKELETAL: Right knee exhibits no erythema, edema or ecchymosis. There is tenderness along the medial and lateral joint lines. Patient can extend knee to about 2 degrees and flex to 100 degrees. Right lower extremity strength is 5/5. No irritability elicited with range of motion testing. His calf was soft and nontender without evidence of DVT. He is neurovascularly intact distally. IMAGING STUDIES: EKG reveals normal sinus rhythm with minor intraventricular conduction delay. Chest x-ray shows no active cardiopulmonary disease. Right knee x-ray notable for end-stage degenerative changes. LABORATORY DATA: Complete blood count: WBC 5.1, RBC 5.44, hemoglobin 15.5, hematocrit 48.4, platelets 192,000. Prothrombin time elevated at 14.2, INR 1.08. Comprehensive metabolic profile: Fasting glucose elevated at 102, BUN elevated at 27, creatinine 1.10, GFR greater than 60, sodium 139, potassium 4.1, chloride 104, carbon dioxide 28. Anion gap decreased at 7. Calcium 9.2. AST 22, ALT 40, alkaline phosphatase 58. Total bilirubin 0.8, total protein 7.3, albumin 3.9, albumin globulin ratio 1.1. IMPRESSION: Right knee osteoarthritis with x-rays notable for end-stage degenerative changes. PLAN: Patient has consented for an elective right total knee arthroplasty with Dr. Kohler for his continued symptoms. Medical optimization pending with Dr. Palafox. Patient will use his Hibiclens and Bactroban as directed. He will follow his primary care managers recommendations on how to take his daily medications and when to stop anticoagulants. Patient will be n.p.o. after midnight unless his primary palliative care specialist would like him to take a medicine with small sip of water the morning of surgery. [facility]
[~2020-02-23] VITALS: Ht 182.9 cm; Wt 115.8 kg
[2020-02-23] VITALS (7 sets, daily range): BP systolic 102–126; BP diastolic 71–85
[~2020-02-23 07:48] MED LIST changes: +LIDOCAINE 1% MDV 20ML VIAL SQ PRN; +LR 1,000 ML IV ONE; +ceFAZolin SOD 2 GM in IV 1 EA IV ONE; +fentaNYL 100 MCG/2 ML INJECTION (J3010) IV PRN
[2020-02-23] MEDS ORDERED: TRANEXAMIC ACID 100 MG/ML 10ML VIAL As Ordered ONE (08:19)
[2020-02-23] MEDS ORDERED: EPINEPHrine INJ 1 MG/ML 1ML AMP As Ordered ONE (08:20)
[2020-02-23] MEDS ORDERED: ceFAZolin 1GM VIAL (J0690 PER 500MG) As Ordered ONE (08:20)
[2020-02-23] MEDS ORDERED: BUPIVACAINE LIPOSOME/PF 1.3% 20ML VIAL (13.3MG/ML)(EXPAREL)(C9290 PER1MG) As Ordered ONE (08:20)
[2020-02-23] MEDS ORDERED: fentaNYL 100 MCG/2 ML INJECTION (J3010) As Ordered ONE ×3 (09:30→11:39)
[2020-02-23] MEDS ORDERED: MIDAZOLAM INJ 2MG/2ML VIAL (J2250 PER 1MG) As Ordered ONE ×2 (09:30→11:10)
[2020-02-23] MEDS ORDERED: ROPIvacaine 0.5% 30ML INJECTION (J2795 PER 1MG) XX ONE (09:45)
[2020-02-23] MEDS: MIDAZOLAM INJ 2MG/2ML VIAL (J2250 PER 1MG) IV PRN ×2 (09:50→09:53)
[2020-02-23] MEDS ORDERED: EPINEPHrine INJ 1 MG/ML 1ML AMP XX ONE (10:00)
[2020-02-23] MEDS ORDERED: BUPIVACAINE HCL 0.25% 10ML VIAL As Ordered ONE (10:18)
[2020-02-23] MEDS ORDERED: propofoL 200 MG/20 ML VIAL As Ordered ONE ×2 (11:10→11:34)
[2020-02-23] MEDS ORDERED: METOCLOPRAMIDE INJ 10MG/2ML VIAL (J2765 PER 1) As Ordered ONE (11:10)
[2020-02-23] MEDS ORDERED: LIDOCAINE 2% 100MG/5ML SDV (FOR ANES.) As Ordered ONE (11:10)
[2020-02-23] MEDS ORDERED: ONDANSETRON 4MG/2ML VIAL As Ordered ONE (11:10)
[2020-02-23] MEDS ORDERED: dexameTHASONE 4 MG/ML 1ML VIAL (J1100 PER 1MG) As Ordered ONE (11:10)
[2020-02-23] MEDS ORDERED: ePHEDrine SULFATE 25 MG/5 ML(5MG/ML) SYRINGE As Ordered ONE (12:15)
[2020-02-23] MEDS ORDERED: LR 1,000 ML IV SCH ×2 (13:00→13:15)
[2020-02-23] MEDS ORDERED: fentaNYL 100 MCG/2 ML INJECTION (J3010) IV PRN (13:00)
[2020-02-23] MEDS ORDERED: PERCOCET 5MG/325MG TAB PO PRN ×2 (13:00→13:15)
[2020-02-23] MEDS ORDERED: ONDANSETRON 4MG/2ML VIAL IV PRN ×2 (13:00→13:15)
[2020-02-23] MEDS ORDERED: MORPHINE 2 MG/ML 1ML VIAL (J2270) IV PRN (13:15)
[2020-02-23] MEDS ORDERED: MORPHINE 4 MG/ML 1ML VIAL/SYRINGE (J2270) IV PRN (13:15)
--- NOTE | 2020-02-23 14:07 | IPN ---
DATE: 02/23/2020 SUBJECTIVE AND PLAN: Patient seen and examined. He wishes to proceed with a knee replacement. He understands the nature of this, the risks of bleeding, infection, damage to nerves and vessels, persistent pain, farrar loosening, blood clots, medical problems, among others. CALLIE
--- NOTE | 2020-02-23 14:48 | REP ---
INDICATION: POST OP EVAL IN PACU COMPARISON: None. TECHNIQUE: AP and cross-table lateral views. FINDINGS: Normal appearance and positioning to the femoral and tibial components. Overlying postsurgical changes and skin cait noted. IMPRESSION: Status post right knee replacement. <Electronically signed by Wilfred Spain > 02/23/20 [id number]
--- NOTE | 2020-02-23 15:08 | RO ---
DATE OF OPERATION: 02/23/2020 PREOPERATIVE DIAGNOSIS: Right knee osteoarthritis. POSTOPERATIVE DIAGNOSIS: Right knee osteoarthritis. PROCEDURE: Right total knee arthroplasty using an Attune rotating platform, posterior stabilized size 7 femur, size 8 tibia, 12 polyethylene, 41 patellar button. SURGEON: Dr. Alberto Kohler REGULATORY INTERN: RADHA Fitch ANESTHESIA: General. ESTIMATED BLOOD LOSS: 50. COMPLICATIONS: None. INDICATIONS: A 59-year-old who recent went through a left knee replacement and wished to go ahead with a right. Understood the nature and risks. PROCEDURE DESCRIPTION: Patient was taken to the operating room and placed in the supine position. After spinal was attempted, it was converted to a general. We prepped and draped the right knee in the usual fashion. A time-out was performed. Tourniquet was inflated. A longitudinal incision was made over the anterior aspect of the knee. Sharp dissection was carried down through subcutaneous tissue, and a medial parapatellar arthrotomy was performed per routine. I then everted the patella. There were significant osteophytes and severe arthritis throughout the knee. These were largely removed with a rongeur. Flexed the knee up. Used the canal-initiating reamer followed by the intramedullary guide set at 5 degrees of valgus and a 9 mm cut. This was pinned in place, and the distal femoral cut was made, which looked to be a little less than I wanted, so I took an additional 2 mm with the saw. I then sized the femur to be a 7, which was what the contralateral knee was. I placed the drill holes in the end of the femur. The size 7 cutting block was secured, and the remaining cuts were made. The excess bone was removed. I then prepared the tibial surface. The posterior retractor was placed. I then used the external alignment guide followed by the secondary guide to check the alignment. I was pleased with this. The tray was pinned in place 4 mm off the low side, which was the medial side, and the proximal tibial cut was made. I removed this bone. It was evident that the posterior cruciate ligament (PCL) was deficient. He also had severe large osteophytes posteriorly and a very large loose body behind the notch that was the size of almost a golf ball that was removed. We made the box cut in the usual fashion, removed the PCL carefully with the cautery, and then removed osteophytes from the posterior aspect of the femur and this large loose body. Registered Private Duty Nurse was then used to remove soft tissues from either side of the knee. There were some fairly large remnants of meniscus. I then prepared the tibial tray. A size 8 fit nicely. Drilled, broached, and then used the spacer blocks and decided on a 12 for flexion/extension, which had excellent soft tissue balance. I had also done a medial release at the beginning and removed some of the fat pad. The trial components were then placed. The femur fit very nicely. The polyethylene size 12 x 7 fit very well, and excellent tissue balance was noted and excellent range of motion. I then free-hand cut the patella, removing about 8 mm of bone and drilled the patella with a size 41 guide. The button was placed. The patella tracked very nicely. The learning support assistant prepared the bone cement in the modern technique. I drilled the holes in the end of the femur, placed the Exparel and irrigated, dried the bony surface, and cemented in the components in the usual fashion. Removed all excess bone cement. Held the patella in place with a clamp. Placed the TXA deep in the wound and then did a final deep irrigation. Repaired the deep layer with #1 Vicryl suture in running Stratafix and removed the clamp once the cement had hardened. Put the knee through a range of motion. The patella tracked very nicely, and the knee was quite stable. Closed the remaining wound with a running Stratafix suture, and a water-tight closure was obtained. I then irrigated, closed the subcutaneous with 2-0 Vicryl and the skin with cait. Tourniquet had been deflated when the cement had hardened. Sterile dressing was applied. He was taken to the recovery room in stable condition. There were no known complications. The plan will be routine postoperative. CALLIE
--- NOTE | 2020-02-23 15:46 | CR.PDOC ---
General Date of Consultation: Feb 23, 2020 Consultation REASON FOR CONSULTATION/CHIEF COMPLAINT: Status post right knee replacement. HISTORY OF PRESENT ILLNESS: 59-year-old male with a history of factor V Leiden mutation, bilateral lower extremity DVTs, hypertension, hyperlipidemia. He is status post right knee arthroplasty. Postoperative day 0. He works as a construction foreman and has had significant pain due to arthritis in his R knee. He has had his L knee replaced in 05/2019. Hospitalist service consulted for assistance in comanagement of medical conditions. Patient states minimal pain. He does not complain of chest pain, shortness of breath, subjective fevers or chills, nausea, vomiting, diarrhea. He has been taking xarelto for DVT treatment. Vitals reviewed, T 97.3. HR 99. BP 116/80. ALLERGIES: Please see below. HOME MEDICATIONS: Please see below. PAST MEDICAL HISTORY: Factor V Leiden Bilateral lower extremity DVTs HTN Hyperlipidemia PAST SURGICAL HISTORY: L shoulder rotator cuff surgery L knee total arthroplasty Loose body removal from bilateral knees arthroscopically FAMILY HISTORY: Mother - HTN SOCIAL HISTORY: Patient denies smoking Patient ports infrequent alcohol use Patient denies illicit drug use Works in construction REVIEW OF SYSTEMS: CONSTITUTIONAL: patient denies fevers, chills HEENT: patient denies blurred vision, loss of vision, headache,. CARDIOVASCULAR: patient denies chest pain, palpitations. RESPIRATORY: patient denies shortness of breath, cough, hemoptysis. GASTROINTESTINAL: patient denies abdominal pain, n/v/d, blood in stool. GENITOURINARY: patient denies dysuria, discharge. SKIN: patient denies rashes. MUSCULOSKELETAL: patient denies joint pain, neck pain. NEUROLOGICAL: patient denies focal weakness, numbness, seizures. PSYCHIATRIC: patient denies SI/HI. ENDOCRINE: patient denies polyuria, heat intolerance, cold intolerance. HEMATOLOGIC/LYMPHATIC: patient denies easy bruising. PHYSICAL EXAMINATION: VITAL SIGNS: please see below General: NAD, comfortable HEENT: PERRLA, EOMI, sclerae clear Neck: supple, normal ROM, no JVD Respiratory: lungs CTAB, no wheeze, no rales, no crackles CVS: RRR, normal S1, S2, no murmurs Abdo: soft, no masses, no hepatosplenomegaly, BS+, no rebound tenderness Extremities: no edema, pulses 2+ MSK: Right leg wrapped in Alex bandage, surgical site clean and intact. No cyanos is. Pulses intact, normal ROM Neuro: no focal neuro deficits, moving all 4 extremities, CN2-12 intact. Strength 5/5 in all 4 extremities. No nystagmus. Psych: calm, cooperative, AAO x 3 LABORATORY DATA: Please see below. ASSESSMENT/PLAN: 59-year-old male with a history of factor V Leiden mutation bilateral DVTs in the lower extremities, hypertension, hyperlipidemia. He is admitted status post right knee total arthroplasty. Hospital services consulted for assistance in medical management. 1. R knee replacement: DVT ppx, pain control per ortho. Bowel regimen. Xarelto was resumed. 2. Hx of bilateral LE DVTs: xarelto was resumed by ortho post-op 3. HTN: resume home meds, lisinopril 20 mg daily, HCTZ 25 mg daily. 4. HLD: resume atorvastatin DVT ppx: Xarelto Vital Signs/I&O Vital Signs Date Time Temp Pulse Resp B/P (MAP) Pulse Ox O2 Delivery O2 Flow Rate FiO2 02/23/20 15:15 97.6 94 17 126/83 (97) 97 Nasal Cannula 3.0 Allergies Coded Allergies: No Known Allergies (Verified , 02/23/20) Home Medications Scheduled Atorvastatin Calcium (Atorvastatin Calcium) 40 Mg Tablet, 40 MG PO QHS, (Reported) Cholecalciferol (Vitamin D3) (Vitamin D3) 4,000 Unit Capsule, 4,000 UNIT PO DAILY, (Reported) Glucosamine/Chondr Marion A Sod (Cidaflex Tablet) 1 Each Tablet, 1 TAB PO BID, (Reported) Lisinopril/Hydrochlorothiazide (Lisinopril-Hctz 20-25 mg Tab) 1 Each Tablet, 1 TAB PO DAILY, (Reported) Rivaroxaban (Xarelto) 10 Mg Tablet, 10 MG PO DAILY, (Reported) Scheduled PRN Calcium Carbonate (Tums) 300 Mg Tab.chew, 750 MG PO PRN PRN for HEARTBURN, (Reported) Polyethylene Glycol 3350 (Miralax) 119 Gm Powder, 17 GM PO DAILYPRN PRN for CONSTIPATION, #1 (Reported) dilute in 8 ounces of water or juice PAM HERNANDEZ MD Feb 23, 2020 15:45
[2020-02-23] MEDS: ceFAZolin SOD 2 GM in IV 1 EA IV SCH (17:25)
[2020-02-23] MEDS: ATORVASTATIN 20 MG TAB PO SCH (19:54)
[2020-02-23] MEDS: PERCOCET 5MG/325MG TAB PO PRN (19:55)
[2020-02-24] MEDS: ceFAZolin SOD 2 GM in IV 1 EA IV SCH (01:47)
[2020-02-24] MEDS: PERCOCET 5MG/325MG TAB PO PRN ×5 (01:55→22:41)
[2020-02-24 02:00] VITALS: BP 136/78
[2020-02-24 06:00] VITALS: BP 111/72
[2020-02-24] MEDS ORDERED: PERC5TAB12 PO (06:11)
[2020-02-24 06:40] LABS: HEMOGLOBIN 12.5 g/dl (13.5-17.5); MEAN CORPUSCULAR HGB CONC 32.1 g/dl (32.0-36.5); MEAN CORPUSCULAR VOLUME 90.5 fl (80.0-96.0); PLATELET COUNT, AUTOMATED 194 10^3/uL (150-450); RED BLOOD COUNT 4.31 10^6/uL (4.30-6.10); WHITE BLOOD COUNT 10.7 10^3/uL (4.0-10.0)
[2020-02-24 08:18] LABS: ALT/SGPT 33 U/L (12-78); BILIRUBIN,TOTAL 0.6 MG/DL (0.2-1.0); BLOOD UREA NITROGEN 24 MG/DL (7-18); CALCIUM LEVEL 8.3 MG/DL (8.8-10.2); CARBON DIOXIDE LEVEL 30 MEQ/L (21-32); CHLORIDE LEVEL 104 MEQ/L (98-107); CREATININE FOR GFR 1.03 MG/DL (0.70-1.30); GLOMERULAR FILTRATION RATE > 60.0 (>49); GLUCOSE, FASTING 130 MG/DL (70-100); POTASSIUM SERUM 4.5 MEQ/L (3.5-5.1); SODIUM LEVEL 139 MEQ/L (136-145); TOTAL PROTEIN 5.5 GM/DL (6.4-8.2)
[2020-02-24] MEDS: hydroCHLOROthiazide 25 MG TAB PO SCH (09:17)
[2020-02-24] MEDS: lisinopriL 20 MG TAB PO SCH (09:18)
[2020-02-24] MEDS: MIRALAX *UNIT DOSE* 17GM PACKET PO PRN (09:51)
[2020-02-24 14:20] VITALS: BP 139/88
[2020-02-24] MEDS ORDERED: RIVAROXABAN 10 MG TAB (XARELTO) PO SCH (18:00)
[2020-02-24] MEDS: ATORVASTATIN 20 MG TAB PO SCH (20:24)
[2020-02-24 22:00] VITALS: BP 136/77
[2020-02-25] MEDS: PERCOCET 5MG/325MG TAB PO PRN ×2 (03:22→07:42)
[2020-02-25 06:00] VITALS: BP 132/79
[2020-02-25 07:49] LABS: HEMATOCRIT 37.6 % (42.0-52.0); HEMOGLOBIN 12.2 g/dl (13.5-17.5); MEAN CORPUSCULAR HEMOGLOBIN 29.5 pg (27.0-33.0); MEAN CORPUSCULAR HGB CONC 32.4 g/dl (32.0-36.5); MEAN CORPUSCULAR VOLUME 90.8 fl (80.0-96.0); PLATELET COUNT, AUTOMATED 178 10^3/uL (150-450); RED BLOOD COUNT 4.14 10^6/uL (4.30-6.10); WHITE BLOOD COUNT 11.5 10^3/uL (4.0-10.0)
[2020-02-25 08:48] VITALS: BP 132/79
[2020-02-25] MEDS: MIRALAX *UNIT DOSE* 17GM PACKET PO PRN (08:48)
[2020-02-25] MEDS: hydroCHLOROthiazide 25 MG TAB PO SCH (08:48)
[2020-02-25] MEDS: lisinopriL 20 MG TAB PO SCH (08:48)
--- NOTE | 2020-02-29 18:30 | DSES ---
DISCHARGE SUMMARY DATE OF ADMISSION: 02/23/2020 DATE OF DISCHARGE: 02/25/2020 ATTENDING: Alberto Kohler MD ADMISSION DIAGNOSIS: Osteoarthritis, right knee. OTHER DIAGNOSES: 1. Factor V mutation. 2. Bilateral lower extremity deep vein thrombosis (DVT). 3. Hypertension. 4. Elevated lipids. DISCHARGE DIAGNOSIS: Osteoarthritis, right knee, status post right total knee arthroplasty. OPERATIVE PROCEDURE: Right total knee arthroplasty. BRIEF HISTORY: This is a 59-year-old male patient with progressively worsening right knee pain and stiffness who failed to improve with conservative management. He was admitted for elective knee replacement on the right side. HOSPITAL COURSE: The patient was admitted on the day of surgery and underwent a right total knee arthroplasty, which was uneventful. He did well in the postoperative period and hospital course was without complications. He was up with physical therapy per their protocol. His pain was controlled. On the day of discharge, he was weightbearing as tolerated on his right lower extremity. DISCHARGE INSTRUCTIONS: He will use Xarelto 10 mg per the protocol for DVT prophylaxis. He will also use EVER stocking for 30 days postoperative for DVT prophylaxis. He will resume his preoperative medications and diet. He was given instructions to include, but not limited to wound monitoring and activity limitations. He will resume his preoperative medications and diet. He will use oral pain medications for pain control. He will follow-up in our office in 10-14 days for surgical follow-up. Please refer to the medical record for further details. Alberto Kohler MD
== END 2020-02-25 10:35 | disposition home or self-care (01) | DRG 470 ==
LOC: M OR 07:48 → M MS5PR 13:50
PROVIDERS: ADMIT Orthopaedic Surgery; ATTEND Orthopaedic Surgery
PROC: 0SRC0J9 Replacement of Right Knee Joint with Synthetic Substitute, Cemented, Open Approach (ICD-10-PCS; principal; 2020-02-23 10:25)
DX: M17.11 Unilateral primary osteoarthritis, right knee (principal); D68.2 Hereditary deficiency of other clotting factors; Z86.718 Personal history of other venous thrombosis and embolism; I10 Essential (primary) hypertension; E78.5 Hyperlipidemia, unspecified; Z79.01 Long term (current) use of anticoagulants; Z79.899 Other long term (current) drug therapy; Z96.652 Presence of left artificial knee joint

== ENCOUNTER 2020-03-29 15:11 | Outpatient (RCR) | payer OTHER ==
[~2020-03-29 15:11] MED LIST changes: -LIDOCAINE 1% MDV 20ML VIAL SQ PRN; -LR 1,000 ML IV ONE; -ceFAZolin SOD 2 GM in IV 1 EA IV ONE; -fentaNYL 100 MCG/2 ML INJECTION (J3010) IV PRN
== END 2020-03-31 ==
LOC: M PT 15:11
PROVIDERS: ATTEND Orthopaedic Surgery
DX: Z47.1 Aftercare following joint replacement surgery (principal); Z96.651 Presence of right artificial knee joint

== ENCOUNTER → 2020-11-04 | Outpatient (CLI) | payer OTHER | LOC: M LABSMTC 11:14 | PROVIDERS: ATTEND Anesthesiology | DX: Z01.812 Encounter for preprocedural laboratory examination (principal); Z20.822 Contact with and (suspected) exposure to COVID-19 ==

== ENCOUNTER 2020-11-09 12:52 | Day surgery (SDC) | payer OTHER ==
[~2020-11-09] VITALS: Ht 182.9 cm; Wt 115.1 kg
[~2020-11-09 12:52] MED LIST changes: +NS 1,000 ML IV ONE
[2020-11-09] MEDS ORDERED: propofoL 200 MG/20 ML VIAL As Ordered ONE (14:13)
[2020-11-09] MEDS ORDERED: LIDOCAINE 2% 100MG/5ML SDV (FOR ANES.) As Ordered ONE (14:56)
--- NOTE | 2020-11-09 15:11 | ROOR ---
Patient Name: Oli Crocker Procedure Date: 11/09/2020 2:44 PM Date of : 1960 Age: 60 Room: [facility] Gender: Male Note Status: Finalized Procedure: Total Colonoscopy to Cecum + Cold Snare Polypectomy + Hemoclips + ileoscopy Indications: Screening for colorectal malignant neoplasm Providers: Eliud Morley MD Referring MD: Bear Palafox MD Requesting Provider: Medicines: Monitored Anesthesia Care Complications: No immediate complications. Procedure: Pre-Anesthesia Assessment: - The heart rate, respiratory rate, oxygen saturations, blood pressure, adequacy of pulmonary ventilation, and response to care were monitored throughout the procedure. The Colonoscope was introduced through the anus and advanced to the cecum, identified by appendiceal orifice and ileocecal valve. The colonoscopy was performed without difficulty. The patient tolerated the procedure well. The quality of the bowel preparation was excellent. Findings: The perianal and digital rectal examinations were normal. Non-bleeding internal hemorrhoids were found during retroflexion. The hemorrhoids were small and Grade I (internal hemorrhoids that do not prolapse). Multiple small and large-mouthed diverticula were found in the recto-sigmoid colon, sigmoid colon and descending colon. Two sessile polyps were found in the sigmoid colon. The polyps were small in size. These polyps were removed with a cold snare. Resection and retrieval were complete. To prevent bleeding after the polypectomy, one hemostatic clip was successfully placed. There was no bleeding at the end of the procedure. The exam was otherwise without abnormality on direct and retroflexion views. The terminal ileum appeared normal. Impression: - Non-bleeding internal hemorrhoids. - Diverticulosis in the recto-sigmoid colon, in the sigmoid colon and in the descending colon. - Two small polyps in the sigmoid colon, removed with a cold snare. Resected and retrieved. Clip was placed. - The examination was otherwise normal on direct and retroflexion views. - The examined portion of the ileum was normal. - The exam was otherwise normal to the cecum. Recommendation: - Patient has a contact number available for emergencies. The signs and symptoms of potential delayed complications were discussed with the patient. Return to normal activities tomorrow. Written discharge instructions were provided to the patient. - Discharge patient to home. - Continue present medications. - Await pathology results. - Telephone GI clinic for pathology results in 1 week. - Repeat colonoscopy in 5 years for surveillance based on pathology results. - Return to referring physician. - The findings and recommendations were discussed with the patient's family. Procedure Code(s): --- Professional --- 65221, Colonoscopy, flexible; with removal of tumor(s), polyp(s), or other lesion(s) by snare technique Diagnosis Code(s): --- Professional --- Z12.11, Encounter for screening for malignant neoplasm of colon K64.0, First degree hemorrhoids K63.5, Polyp of colon K57.30, Diverticulosis of large intestine without perforation or abscess without bleeding CPT copyright 2019 [employer]. All rights reserved. The codes documented in this report are preliminary and upon aircraft power plant assembler review may be revised to meet current compliance requirements. Eliud Morley MD Eliud Morley MD 11/09/2020 3:11:42 PM Electronically signed by Eliud Morley MD Number of Addenda: 0 Note Initiated On: 11/09/2020 2:44 PM Estimated Blood Loss: Estimated blood loss: none.
[2020-11-09 15:40] VITALS: BP 109/64
== END 2020-11-09 15:48 | disposition home or self-care (01) ==
LOC: M OPP 12:52
PROVIDERS: ATTEND Internal Medicine Gastroenterology
DX: Z12.11 Encounter for screening for malignant neoplasm of colon (principal); D12.6 Benign neoplasm of colon, unspecified; K57.30 Diverticulosis of large intestine without perforation or abscess without bleeding; K64.0 First degree hemorrhoids; Z79.899 Other long term (current) drug therapy; Z86.718 Personal history of other venous thrombosis and embolism

== ENCOUNTER → 2021-03-11 | Outpatient (CLI) | payer OTHER ==
[~2021-03-11] MED LIST changes: -LISI20TA20 PO; +LISI20TA37 PO; -NS 1,000 ML IV ONE
[2021-03-11 09:39] LABS: HEMATOCRIT 46.4 % (42.0-52.0); HEMOGLOBIN 15.7 g/dl (13.5-17.5); MEAN CORPUSCULAR HEMOGLOBIN 29.7 pg (27.0-33.0); MEAN CORPUSCULAR HGB CONC 33.8 g/dl (32.0-36.5); MEAN CORPUSCULAR VOLUME 87.7 fl (80.0-96.0); PLATELET COUNT, AUTOMATED 184 10^3/uL (150-450); RED BLOOD COUNT 5.29 10^6/uL (4.30-6.10); WHITE BLOOD COUNT 6.3 10^3/uL (4.0-10.0)
[2021-03-11 10:09] LABS: ALBUMIN 3.5 GM/DL (3.2-5.2); ALT/SGPT 40 U/L (12-78); BILIRUBIN,TOTAL 0.8 MG/DL (0.2-1.0); BLOOD UREA NITROGEN 21 MG/DL (7-18); CALCIUM LEVEL 8.7 MG/DL (8.8-10.2); CARBON DIOXIDE LEVEL 28 MEQ/L (21-32); CHLORIDE LEVEL 106 MEQ/L (98-107); CHOLESTEROL LEVEL 162 MG/DL (<200); CHOLESTEROL RISK RATIO 2.842 (<5); CREATININE FOR GFR 0.99 MG/DL (0.70-1.30); GLOMERULAR FILTRATION RATE > 60.0 (>49); GLUCOSE, FASTING 94 MG/DL (70-100); HDL CHOLESTEROL 57 MG/DL (>40); LDL CHOLESTEROL 91 MG/DL (<100); NON-HDL-C 105 MG/DL; POTASSIUM SERUM 3.9 MEQ/L (3.5-5.1); PROSTATIC SPECIFIC AG MONITOR 0.61 NG/ML (< 4.00); SODIUM LEVEL 141 MEQ/L (136-145); TOTAL PROTEIN 6.7 GM/DL (6.4-8.2); TRIGLYCERIDES LEVEL 69 MG/DL (<150)
== END ==
LOC: M LAB 08:58
PROVIDERS: ATTEND Family Medicine
DX: Z12.5 Encounter for screening for malignant neoplasm of prostate (principal); I10 Essential (primary) hypertension

== ENCOUNTER → 2021-04-12 | Outpatient (CLI) | payer OTHER | LOC: M RAD 10:04 | PROVIDERS: ATTEND Specialist | DX: I82.512 Chronic embolism and thrombosis of left femoral vein (principal) ==

== ENCOUNTER → 2022-03-05 | Outpatient (CLI) | payer OTHER ==
[2022-03-05 08:29] LABS: BASO # 0.1 10^3/uL (0.0-0.2); BASO % 0.8 % (0.0-1.0); EOS # 0.2 10^3/uL (0.0-0.5); EOS % 2.9 % (0.0-3.0); HEMATOCRIT 47.4 % (42.0-52.0); HEMOGLOBIN 15.6 g/dl (13.5-17.5); LYMPH # 1.6 10^3/uL (1.5-5.0); LYMPH % 24.5 % (24.0-44.0); MEAN CORPUSCULAR HEMOGLOBIN 29.5 pg (27.0-33.0); MEAN CORPUSCULAR HGB CONC 32.9 g/dl (32.0-36.5); MEAN CORPUSCULAR VOLUME 89.6 fl (80.0-96.0); MONO # 0.6 10^3/uL (0.0-0.8); MONO % 9.4 % (2.0-8.0); NEUTROPHILS % 61.9 % (36.0-66.0); PLATELET COUNT, AUTOMATED 191 10^3/uL (150-450); RED BLOOD COUNT 5.29 10^6/uL (4.30-6.10); WHITE BLOOD COUNT 6.5 10^3/uL (4.0-10.0)
[2022-03-05 08:57] LABS: ALBUMIN 3.8 G/DL (3.2-5.2); ALKALINE PHOSPHATASE 54 U/L (46-116); ALT/SGPT 44 U/L (7.0-40); AST/SGOT 26 U/L (<34); BILIRUBIN,TOTAL 1.1 MG/DL (0.3-1.2); BLOOD UREA NITROGEN 21 MG/DL (9-23); CALCIUM LEVEL 8.9 MG/DL (8.3-10.6); CARBON DIOXIDE LEVEL 28 MMOL/L (20-31); CHLORIDE LEVEL 101 MMOL/L (98-107); CHOLESTEROL LEVEL 170 MG/DL (<200); CHOLESTEROL RISK RATIO 3.44 (<5); CREATININE FOR GFR 1.01 MG/DL (0.70-1.30); GLOMERULAR FILTRATION RATE > 60.0 (>49); GLUCOSE, FASTING 102 MG/DL (74-106); HDL CHOLESTEROL 49.4 MG/DL (>40); LDL CHOLESTEROL 101.8 MG/DL (<100); NON-HDL-C 121 MG/DL; POTASSIUM SERUM 4.3 MMOL/L (3.5-5.1); SODIUM LEVEL 137 MMOL/L (136-145); TOTAL PROTEIN 6.6 G/DL (5.7-8.2); TRIGLYCERIDES LEVEL 94 MG/DL (<150)
== END ==
LOC: M LAB 07:55
PROVIDERS: ATTEND Family Medicine
DX: Z12.5 Encounter for screening for malignant neoplasm of prostate (principal); I10 Essential (primary) hypertension
CPT/HCPCS: 36415; 80053; 80061; 85025; G0103